=== PATIENT | female | born 1980 | race Caucasian/White ===

== ENCOUNTER 2019-11-03 14:02 | Emergency (ER) | payer OTHER ==
[~2019-11-03] VITALS: Ht 165.1 cm; Wt 82.0 kg
[2019-11-03 14:04] VITALS: BP 134/72
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
[2019-11-03] MEDS ORDERED: DIAZEPAM 5 MG TABLET ONE (14:22)
[2019-11-03] MEDS ORDERED: KETOROLAC 30 MG/1 ML ONE (14:22)
--- NOTE | 2019-11-03 14:28 | NUR ---
PT MEDICATED PER EMAR.
[2019-11-03] MEDS ORDERED: KETOROLAC 30 MG/1 ML IM ONE (14:30)
[2019-11-03] MEDS ORDERED: DIAZEPAM 5 MG TABLET PO ONE (14:30)
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
== END 2019-11-03 17:03 | disposition home or self-care (01) ==
LOC: ED 16:55
DX: S13.4XXA Sprain of ligaments of cervical spine, initial encounter (principal); S23.3XXA Sprain of ligaments of thoracic spine, initial encounter; S33.5XXA Sprain of ligaments of lumbar spine, initial encounter; M25.511 Pain in right shoulder; V49.49XA Driver injured in collision with other motor vehicles in traffic accident, initial encounter; Y93.89 Activity, other specified; Y92.410 Unspecified street and highway as the place of occurrence of the external cause; Y99.8 Other external cause status
CPT/HCPCS: 71045; 72020; 72050; 72072; 72110; 73030; 96372; 99283; J1885